=== PATIENT | male | born 1985 | race Caucasian/White ===

== ENCOUNTER 2024-09-29 10:57 | Outpatient (AMB) | payer OTHER, SELFPAY ==
[2024-09-29 11:08] VITALS: BP 136/86; PULSE 78; RESP 18; TEMP 37; O2SAT 99; BMI 41.2
--- NOTE | 2024-09-29 11:08 | MHC.PC.OV ---
Vital Signs 09/29/24 11:08 Height 5 ft 6.5 in Weight 259 lb BMI 41.2 BP 136/86 Blood Pressure Location Lt brachial Position Sitting Respiration 18 Pulse 78 Pulse Source Pulse Oximeter Temp 98.6 F Temp Source Oral Pulse Oximetry (%) 99 Oxygen Delivery Method Room Air Intake Visit Reasons: establish care Intake Note: Patient is a new patient here to establish care. Patient reports that he has not had a primary care physician in 20+ years and sought care at the emergency department or urgent care facility when did. However, patient reports that he did have specialty visits with a urologist and [facility]. Medical records have not been requested and have not been received. Medical Records Auditor Required: No Accompanied by: Self / Same As Patient Allergies No Known Allergies Allergy (Verified 09/29/24 11:33) Medication List - Last Reconciled 09/29/24 by BELL James No Known Home Meds Tobacco use date assessed: 09/29/24 Dental Screening Dental Screen Date: 09/29/24 Did you have a dental visit in the last 12 months?: No Did you have a dental problem in the last 6 months where you did not have access to dental care?: No Was dental information given to patient?: No HPI establish care HPI Details Previous PCP: No PCP Last visit: Last PE: Specialist: urologist at [facility]YN:n/a Past medical history: Pin in left hip as a child, slipped capitus femur, at 12 years, asthma as a child-wheezes with changing of the weather, Medications: Family HX: mother has a PA at 49 y/o survived, sister son has a heart condition (requiring surgery), paternal grand other DM, Problem: The patient is a 39-year-old male presenting to [facility] care for health maintenance and mental health support. He has undergone significant urological intervention, with reconstructive surgery for a urethral stricture accomplished two years ago (at the [facility] by Dr. Joseph), ensuring improved urinary function. His childhood asthma appears resolved without medication, though he expresses concern related to his current obesity and its impact on his health, suggesting a likelihood of exacerbating his respiratory symptoms. 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 Family history includes early-onset heart disease, demonstrated by his mother's myocardial infarction in her late 40s and concerns of diabetes associated with paternal lineage. Additionally, he articulates concerns regarding his mental health, discussing his growing sense of dissatisfaction and lack of fulfillment, which may indicate underlying depression. The patient has not pursued prior mental health treatment but indicates an interest in engaging with mental health services to better address these concerns. States that two years ago he had an endoscopic laser procedure that removed scar tissue from his urethra. The patient was having reoccurring UTIs and difficulty emptying his bladder. All stemming from repeated damages to his pelvic area over the years. Reports that he had to wear a Meyer bag for over a month, as a result, he started taking his health serous and wants to start keeping up with the maintenance of his health. States that he has no desire to take his life but at times, he does not see the purpose of being here (alive). He would like to talk to a therapist to clear his mind and hopefully stopped being so hard on himself. Denies chest pain/sob/heart palpitation/dizziness No abdominal pain/change in bowel habits Denies urinary symptoms [facility] Surgical History History of repair of left hip joint Personal history of surgery to other organs Hx of tooth extraction Family History (Updated 10/03/24 @ 17:25 by BELL James) Mother Heart attack Father No problems noted. 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 1. Little interest or pleasure in doing things: not at all 2. Feeling down, depressed, or hopeless: not at all 3. Trouble falling or staying asleep, or sleeping too much: more than half the days 4. Feeling tired or having little energy: not at all 5. Poor appetite or overeating: not at all 6. Feeling bad about yourself - or that you are a failure or have let yourself or your family down: not at all 7. Trouble concentrating on things, such as reading the newspaper or watching television: not at all 8. Moving or speaking so slowly that other people could have noticed. Or the opposite - being so fidgety or restless that you have been moving around a lot more than usual: not at all 9. Thoughts that you would be better off or of hurting yourself in some way: not at all Total score: 2 Depression Screening Interpretation: Negative Depression Screening Done: Yes 66823 - PHQ-9 Billing: Yes Source: Developed by Drs. Karel Mota, Mary Mcarthur, Brendan Chacon and colleagues, with an educational missael from [employer]. Thrive Questionnaire Date Thrive assessed: 09/29/24 I am a: Patient What is your living situation today?: I have a steady place to live Within the past 12 months, did the food you bought not last and you didn't have the money to get more?: Never true Within the past 12 months, did you worry whether your food would run out before you got money to buy more?: Never true Do you have trouble paying for medicines?: No Do you have trouble getting transportation to medical appointments?: No Do you have trouble paying your heating and electricity bill?: No Do you have trouble taking care of your child, family member or friend?: No Do you have trouble with day-to-day activities such as bathing, preparing meals, shopping, managing finances, etc.?: No Are you currently unemployed and looking for a job?: No Are you interested in more education?: Yes Please select the resources that you would like help with: None Currently or been in a relationship where the following occur: No concerns reported THRIVE Score: 0 AUDIT C Alcohol Use Questionnaire (AUDIT-C) 1. How often do you have a drink containing alcohol?: Never Total Score: 0 Score Reviewed/Action Taken: No PAULETTE-7 AMB Questionnaire PAULETTE-7 Date PAULETTE - 7 assessed: 09/29/24 Feeling nervous, anxious, or on edge: 2 = More than half the days Not being able to stop or control worryin = More than half the days Worrying too much about different things: 2 = More than half the days Trouble relaxin = More than half the days Being so restless that it is hard to sit still: 2 = More than half the days Becoming easily annoyed or irritable: 2 = More than half the days Feeling afraid as if something awful might happen: 2 = More than half the days Total PAULETTE-7 score (0-4 normal; 5-9 mild; 10-14 moderate; 15-21 severe): 14 Source: Developed by Drs. Karel Mota, Mary Mcarthur, Brendan Chacon and colleagues, with an educational missael from [employer]. PAULETTE-7 Assessment Billing PAULETTE-7 Assessment Tool: PAULETTE-7 Assessment 46611 Review of Systems Const Denies headache(s) Eyes Denies loss of vision ENT Denies vertigo, Denies dizziness, Denies headache(s) and Denies sore throat Card Denies chest pain, Denies leg edema and Denies lightheadedness Resp Denies cough, Denies hemoptysis and Denies wheezing GI Denies abdominal pain, Denies melena, Denies constipation, Denies diarrhea and Denies vomiting Denies dysuria, Denies urinary frequency and Denies urinary urgency Musc Denies arthralgias, Denies joint swelling, Denies numbness and Denies tingling Neuro Denies Abnormal speech present, Denies behavioral changes, Denies vertigo, Denies dizziness, Denies headache(s), Denies loss of vision, Denies memory loss, Denies numbness and Denies tingling Psych Reports anxiety, Denies behavioral changes, Reports depression, Denies memory loss and Denies panic attacks Ze/Lymph Denies easy bleeding and Denies easy bruising Aller/Immun Denies wheezing Physical exam (Primary Care) Vital Signs: Last Vital Signs Temp 98.6 F 09/29/24 11:08 Pulse 78 09/29/24 11:08 Resp 18 09/29/24 11:08 BP 136/86 09/29/24 11:08 Pulse Ox 99 09/29/24 11:08 Oxygen Delivery Method Room Air 09/29/24 11:08 BMI result Body Mass Index 41.2 Tobacco/Smoking Status: Tobacco use Status Tobacco use date assessed 09/29/24 09/29/24 11:28 Patient Tobacco Use Status Never used Tobacco 09/29/24 11:28 e-Cigarette/Vaping Use Currently Using 09/29/24 11:28 PHQ-9: PHQ-9 Score PHQ-9: Total score 2 09/29/24 11:39 Depression Screening Interpretation: Negative Thrive Assessment: Date of Thrive Assessment Date Thrive assessed 09/29/24 09/29/24 11:28 Currently or been in a relationship where the following occur: No concerns reported Const General: healthy appearing, no acute distress, alert and awake Nutritional Appearance: well nourished Orientation/consciousness: oriented to person, oriented to place and oriented to time HENMT Ears: TM's normal bilaterally General nose exam: Normal nasal mucous membranes and turbinates present Eyes Conjunctivae: conjunctivae normal Sclerae: sclerae normal Pupils: Equal, round and reactive pupils present Neck Neck: Yes no lymphadenopathy and Yes no JVD Thyroid: Thyroid normal Carotids: no bruits Resp Effort & Inspection: normal respiratory effort and not tachypneic Auscultation: no crackles, no rales, no rhonchi and no wheezes Cardio Rate: regular rate Rhythm: regular rhythm Heart sounds: no murmurs and normal S1 and S2 GI Palpation (GI): Soft to palpation, nontender, no hepatomegaly and no splenomegaly Auscultation: normal bowel sounds Skin General skin exam: no rashes or lesions noted and dry skin Neuro General: oriented to person, oriented to place and oriented to time Cranial nerves: Yes Equal, round and reactive pupils present Speech: No Abnormal speech present Gait exam (Neuro): Normal gait present Motor exam (neuro): no tremor noted Extrem Right upper extremity: full ROM Left upper extremity: full ROM Right lower extremity: full ROM; no edema Left lower extremity: full ROM; no edema Psych Mental Status: mental status grossly normal Speech and movement: Normal speech and movement present Affect: normal affect Attitude: cooperative Thought process: Normal thought process present Coding Level of Care Code New Pt Level 4 (62325) Diagnoses Encounter to establish care with new provider Z76.89 Depression, unspecified depression type F32.A Depression Type: unspecified Additional Codes PAULETTE-7 Assessment Billing - PAULETTE-7 Assessment Tool: PAULETTE-7 Assessment 78025 ([id number]) PHQ-9 - 11354 - PHQ-9 Billing: Yes ([id number]) Time Spent (min) 39 Assessment & Plan Assessment & Plan (1) Encounter to establish care with new provider: Code(s): Z76.89 - Persons encountering health services in other specified circumstances Category: Medical Plan: States that he is looking to get a comprehensive workup. He wants to stay on top of health related issues because he is not getting any younger. Labs ordered and the patient was scheduled to return in 6 weeks for a physical evaluation. (2) Depression: Code(s): F32.A - Depression, unspecified Category: Medical Qualifiers: Depression Type: unspecified Qualified Code(s): F32.A - Depression, unspecified Plan: Urgent psychosocial referral placed Orders: Orders Complete Blood Count Auto Diff 09/29/24 Z00.00 - Encounter for general adult medical examination without abnormal findings Lipid Panel 09/29/2400.00 - Encounter for general adult medical examination without abnormal findings UA CC w/rflx Micro + Cult 09/29/24 Z00. - Encounter for general adult medical examination without abnormal findings Glucose Fasting 09/29/24 Z00.00 - Encounter for general adult medical examination without abnormal findings Comprehensive [place]. Panel Fast 09/29/24 Z00. - Encounter for general adult medical examination without abnormal findings TSH reflex Free T4 09/29/24 Z00. - Encounter for general adult medical examination without abnormal findings Vitamin D 25-OH Total 09/29/24 Z00.00 - Encounter for general adult medical examination without abnormal findings Referrals Psychology Referral F32.A - Depression, unspecified
--- OUTSIDE RECORDS SUMMARY | 2024-09-29 12:21 | XMS_ITS | Clinical Summary ---
Author Organization [facility] ity Address [address] [place] [address] Care Team Providers Care Home Office Claim Specialist Name Role Phone Unavailable Primary Care Provider Unavailabl e Social History Tobacco Use Types Packs/Day Years Used Date Smoking Tobacco: Never Assessed Sex and Gender Information Value Date Recorded Sex Assigned at Not on file Legal Sex Male 1:43 PM EST Gender Identity Not on file Sexual Orientation Not on file Plan of Treatment Health Maintenance Due Date Last Done Comments DTaP,Tdap,and Td Vaccines (1 - Tdap) 2003 Hepatitis B Vaccines (1 of 3 - 19+ 3-dose series) 2003 Cholesterol Screening (Lipid Panel) 11/15/2022 Depression Screening 11/15/2022 HIV Screening 11/15/2022 Hepatitis C Screening 11/15/2022 Social Influencers of Health Screening 11/15/2022 COVID-19 Vaccine (2023-2 5 season) 2024 Influenza Vaccine (Season Ended) 2025 HIB Vaccines Aged Out No longer eligi ble based on patient's age to complete this topic HPV Vaccines Aged Out No longer eligi ble based on patient's age to complete this topic Hepatitis A Vaccines Aged Out No long er eligible based on patient's age to complete this topic IPV Vaccines Aged Out No longer eligi ble based on patient's age to complete this topic MMR Vaccines Aged Out No longer eligi ble based on patient's age to complete this topic Meningococcal ACWY Vaccine Aged Out N o longer eligible based on patient's age to complete this topic Meningococcal B Vaccine Aged Out No l onger eligible based on patient's age to complete this topic Pneumococcal Vaccine: Pediat rics (0 to 5 Years) and At-Risk Patients (6 to 64 Years) Aged Out No longer eligible b ased on patient's age to complete this topic RSV Immunization Patients Un jessica 20 months Aged Out No longer eligible b ased on patient's age to complete this topic Varicella Vaccines Aged Out No longer eligible based on patient's age to complete this topic
== END 2024-09-29 12:10 | disposition home or self-care (01) ==
LOC: HO.HMCH 10:57
DX: Z76.89 Persons encountering health services in other specified circumstances (principal); F32.A Depression, unspecified

== ENCOUNTER → 2024-09-29 10:57 | Outpatient (BNVA) | payer OTHER, SELFPAY | DX: F32.A Depression, unspecified (principal); Z76.89 Persons encountering health services in other specified circumstances | CPT/HCPCS: 96127 ==

== ENCOUNTER 2024-11-03 13:50 | Outpatient (REF) | payer OTHER, SELFPAY ==
[2024-11-03 14:08] LABS: MANUAL DIFF FLAG NO
[2024-11-03 14:19] LABS: Basophils Percent Auto 0.5 % (0-2); Eosinophils Absolute Auto 0.3 X10*3/uL (0.0-0.4); Eosinophils Percent Auto 3.7 % (0-4); Hemoglobin 15.3 g/dl (14.0-18.0); Imm Gran Abs Auto 0.02 X10*3/uL (0.00-0.03); Imm Gran Pct Auto 0.3 % (0.0-0.4); Lymphocytes Absolute Auto 2.6 X10*3/uL (1.2-4.9); Lymphocytes Percent Auto 34.1 % (20-40); Mean Corpuscular Hemoglobin 28.8 pg (27.0-33.0); Mean Corpuscular Volume 84.7 fL (80.0-98.0); Mean Platelet Volume 8.4 fL (9.4-12.4); Monocytes Absolute Auto 0.6 X10*3/uL (0.1-1.2); Monocytes Percent Auto 7.8 % (2-11); Neutrophils Percent Auto 53.6 % (45-73); Platelet Count 300 X10*3/uL (160-400); Red Blood Count 5.31 X10*6/uL (4.60-5.80); White Blood Count 7.5 X10*3/uL (4.8-10.8)
[2024-11-03 14:49] LABS: Alanine Aminotransferase 84 U/L (0-40); Albumin Level 4.6 g/dL (3.5-5.0); Alkaline Phosphatase 62 U/L (39-117); Anion Gap 12 (12-20); Aspartate Amino Transferase 44 U/L (5-37); Bilirubin Total 0.9 mg/dL (0.0-1.0); Blood Urea Nitrogen 12 mg/dL (9-16); Calcium 9.4 mg/dL (8.4-10.2); Carbon Dioxide 24 mmol/L (22-29); Chloride 109 mmol/L (96-108); Cholesterol 126 mg/dL (<200); Estimated Glomerular Filt Rate > 60; Glucose Fasting 89 mg/dL (60-99); HDL Cholesterol 37 mg/dL (>40); LDL Cholesterol Calculated 63 mg/dL (<100); Potassium 3.9 mmol/L (3.3-5.1); Sodium 141 mmol/L (135-145); Total Protein 7.4 g/dL (6.5-8.0); Triglycerides 134 mg/dL (<150)
[2024-11-03 14:59] LABS: TSH reflex Free T4 0.89 uIU/mL (0.32-4.0); Vitamin D 25-OH Total 17.8 ng/mL (>30)
[2024-11-03 15:20] LABS: Appearance Urine Clear; Color Urine Yellow; Glucose Urine UA Negative (Negative); Leukocyte Esterase Urine Negative (Negative); Nitrite Urine Negative (Negative); Urine Blood Negative (Negative); Urine Ketones Negative (Negative); Urine Protein Negative (Neg-Trace)
--- OUTSIDE RECORDS SUMMARY | 2024-11-03 16:33 | XMS_ITS | Clinical Summary ---
Author Organization [facility] ity Address [address] [place] [address] Care Team Providers Care Educational Aide Name Role Phone Unavailable Primary Care Provider [...]
== END 2024-11-03 13:51 | disposition home or self-care (01) ==
LOC: HO.LAB 13:50
DX: Z00.00 Encounter for general adult medical examination without abnormal findings (principal)
CPT/HCPCS: 36415; 80053; 80061; 81003; 82306; 84443; 85025

== ENCOUNTER 2024-11-11 08:30 | Outpatient (AMB) | payer OTHER, SELFPAY ==
[2024-11-11 08:35] VITALS: BP 124/74; PULSE 75; RESP 16; TEMP 36.9; O2SAT 97; BMI 41.4
--- NOTE | 2024-11-11 08:35 | A.OFFPC_ITS ---
Vital Signs 11/11/24 08:35 Height 5 ft 6.5 in Weight 260 lb 6 oz BMI 41.4 BP 124/74 Blood Pressure Location Lt brachial Position Sitting Respiration 16 Pulse 75 Pulse Source Pulse Oximeter Temp 98.5 F Temp Source Oral Pulse Oximetry (%) 97 Oxygen Delivery Method Room Air Intake Visit Reasons: Annual Exam Prover Required: No Accompanied by: Self / Same As Patient Allergies No Known Allergies Allergy (Verified 11/11/24 08:41) Medication List - Last Reconciled 11/11/24 by BELL James No Known Home Meds Tobacco use date assessed: 11/11/24 Dental Screening Dental Screen Date: 11/11/24 Did you have a dental visit in the last 12 months?: No Did you have a dental problem in the last 6 months where you did not have access to dental care?: No Was dental information given to patient?: No HPI Annual Exam HPI Details Patient is present in for annual physical Dentist: 10 years-recommend Eye:2 years ago Snellen: Right: Left: Corrected vision: yes STI screening:n/a Colonoscopy:n/a Pap Smer:n/a PHQ-9: Flu:no vaccines COVID: Tdap:up to date Diet:regular Exercise:no exercise snoring and stop breathing during sleeping per partner white scab areas to back that he is requesting to be checked dermatology Elevated liver enzymes on labs [facility] Surgical History History of repair of left hip joint Personal history of surgery to other organs Hx of tooth extraction Family History (Updated 10/03/24 @ 17:25 by BELL James) Mother Heart attack Father No problems noted. 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 1. Little interest or pleasure in doing things: not at all 2. Feeling down, depressed, or hopeless: not at all 3. Trouble falling or staying asleep, or sleeping too much: more than half the days 4. Feeling tired or having little energy: not at all 5. Poor appetite or overeating: not at all 6. Feeling bad about yourself - or that you are a failure or have let yourself or your family down: not at all 7. Trouble concentrating on things, such as reading the newspaper or watching television: not at all 8. Moving or speaking so slowly that other people could have noticed. Or the opposite - being so fidgety or restless that you have been moving around a lot more than usual: not at all 9. Thoughts that you would be better off or of hurting yourself in some way: not at all Total score: 2 Depression Screening Interpretation: Negative Depression Screening Done: Yes Source: Developed by Drs. Karel Mota, Mary Mcarthur, Brendan Chacon and colleagues, with an educational missael from [employer]. Thrive Questionnaire Date Thrive assessed: 11/11/24 I am a: Patient What is your living situation today?: I have a steady place to live Within the past 12 months, did the food you bought not last and you didn't have the money to get more?: Never true Within the past 12 months, did you worry whether your food would run out before you got money to buy more?: Never true Do you have trouble paying for medicines?: No Do you have trouble getting transportation to medical appointments?: No Do you have trouble paying your heating and electricity bill?: No Do you have trouble taking care of your child, family member or friend?: No Do you have trouble with day-to-day activities such as bathing, preparing meals, shopping, managing finances, etc.?: No Are you currently unemployed and looking for a job?: No Are you interested in more education?: Yes Please select the resources that you would like help with: None Currently or been in a relationship where the following occur: No concerns reported THRIVE Score: 0 AUDIT C Alcohol Use Questionnaire (AUDIT-C) 1. How often do you have a drink containing alcohol?: Never 3. How often do you have six or more drinks on one occasion?: Never Total Score: 0 Score Reviewed/Action Taken: No PAULETTE-7 AMB Questionnaire PAULETTE-7 Date PAULETTE - 7 assessed: 11/11/24 Feeling nervous, anxious, or on edge: 2 = More than half the days Not being able to stop or control worryin = More than half the days Worrying too much about different things: 2 = More than half the days Trouble relaxin = More than half the days Being so restless that it is hard to sit still: 2 = More than half the days Becoming easily annoyed or irritable: 2 = More than half the days Feeling afraid as if something awful might happen: 2 = More than half the days Total PAULETTE-7 score (0-4 normal; 5-9 mild; 10-14 moderate; 15-21 severe): 14 Source: Developed by Drs. Karel Mota, Mary Mcarthur, Brendan Chacon and colleagues, with an educational missael from [employer]. Review of Systems Const Reports daytime sleepiness, Denies headache(s), Reports snoring and Reports other (Reports brain fog even after sleeping all night) Eyes Denies loss of vision ENT Denies vertigo, Denies dizziness, Denies headache(s) and Denies sore throat Card Denies chest pain, Denies leg edema, Denies lightheadedness and Reports dyspnea on exertion (With over exertion) Resp Denies cough, Denies hemoptysis, Reports dyspnea on exertion (With over exertion), Reports snoring and Denies wheezing GI Denies abdominal pain, Denies melena, Denies constipation, Denies diarrhea and Denies vomiting Denies dysuria, Denies urinary frequency and Denies urinary urgency Musc Denies arthralgias, Denies joint swelling, Denies numbness, Reports stiffness (reports stick neck after sleeping-attributed to needing new mattress) and Denies tingling Skin/Breast Reports lesions (ongoing white spots to back) Neuro Denies Abnormal speech present, Denies behavioral changes, Denies vertigo, Denies dizziness, Denies headache(s), Denies loss of vision, Denies memory loss, Denies numbness and Denies tingling Psych Reports anxiety, Denies behavioral changes, Reports depression, Denies memory loss and Denies panic attacks Ze/Lymph Denies easy bleeding and Denies easy bruising Aller/Immun Denies wheezing Physical exam (Primary Care) Vital Signs: Oxygen Delivery Method Room Air 11/11/24 08:35 Tobacco/Smoking Status: Tobacco use Status Tobacco use date assessed 09/29/24 09/29/24 11:28 Patient Tobacco Use Status Never used Tobacco 09/29/24 11:28 e-Cigarette/Vaping Use Currently Using 09/29/24 11:28 Depression Screening Interpretation: Negative Thrive Assessment: Date of Thrive Assessment Date Thrive assessed 09/29/24 09/29/24 11:28 Currently or been in a relationship where the following occur: No concerns reported Const General: healthy appearing, no acute distress, alert and awake Nutritional Appearance: well nourished Orientation/consciousness: oriented to person, oriented to place and oriented to time HENMT Ears: TM's normal bilaterally General nose exam: Normal nasal mucous membranes and turbinates present Eyes Conjunctivae: conjunctivae normal Sclerae: sclerae normal Pupils: Equal, round and reactive pupils present Neck Neck: Yes no lymphadenopathy and Yes no JVD Thyroid: Thyroid normal Carotids: no bruits Resp Effort & Inspection: normal respiratory effort and not tachypneic Auscultation: no crackles, no rales, no rhonchi and no wheezes Cardio Rate: regular rate Rhythm: regular rhythm Heart sounds: no murmurs and normal S1 and S2 GI Inspection: Yes obesity Palpation (GI): Soft to palpation, nontender, no hepatomegaly and no splenomegaly Auscultation: normal bowel sounds General: Yes no CVA tenderness Back/Spine/Pelvis Back: no CVA tenderness Skin General skin exam: dry skin and other (few scattered white spots to upper back) Neuro General: oriented to person, oriented to place, oriented to time and CN's II-XI intact bilaterally Cranial nerves: Yes Equal, round and reactive pupils present Speech: No Abnormal speech present Gait exam (Neuro): Normal gait present Motor exam (neuro): no tremor noted Deep tendon reflexes (DTR's): Right triceps reflex intensity grade: 2+, Left triceps reflex intensity grade: 2+, Rt Biceps (C5, C6): 2+, Left biceps reflex intensity grade: 2+, Right brachioradialis reflex intensity grade: 2+, Left brachioradialis reflex intensity grade: 2+, Right patellar reflex intensity grade: 2+ and Left patellar reflex intensity grade: 2+ Extrem Right upper extremity: full ROM Left upper extremity: full ROM Right lower extremity: full ROM; no edema Left lower extremity: full ROM; no edema Psych Mental Status: mental status grossly normal Speech and movement: Normal speech and movement present Affect: normal affect Attitude: cooperative Thought process: Normal thought process present Results Reviewed Results Reviewed: Laboratory Tests 11/03/24 11/03/24 14:07 14:08 WBC 7.5 RBC 5.31 Hgb 15.3 Hct 45.0 MCV 84.7 MCH 28.8 MCHC 34.0 RDW 12.0 Plt Count 300 Sodium 141 Potassium 3.9 Chloride 109 H Carbon Dioxide 24 Anion Gap 12 BUN 12 Creatinine 1.03 Estimated GFR > 60 Fasting Glucose 89 Calcium 9.4 Total Bilirubin 0.9 AST 44 H ALT 84 H Alkaline Phosphatase 62 Total Protein 7.4 Albumin 4.6 Triglycerides 134 Cholesterol 126 LDL Cholesterol, Calc 63 HDL Cholesterol 37 L 25-OH Vitamin D Total 17.8 L TSH 0.89 Urine Color Yellow Urine Appearance Clear Urine pH 6.0 Ur Specific [place] 1.010 Urine Protein Negative Urine Glucose (UA) Negative Urine Ketones Negative Urine Blood Negative Urine Nitrite Negative Ur Leukocyte Esterase Negative Coding Level of Care Code Est Pt Prev Care 40-64y(18028) Diagnoses Annual physical exam Z00.00 Depression, unspecified depression type F32.A Depression Type: unspecified Elevated liver enzymes R74.8 Vitamin D deficiency E55.9 Snoring R06.83 Has stopped breathing R09.2 Daytime sleepiness R40.0 Hypopigmentation L81.9 Time Spent (min) 41 Assessment & Plan Assessment & Plan (1) Annual physical exam: Code(s): Z00.00 - Encounter for general adult medical examination without abnormal findings Category: Medical Plan: Reviewed preventative guidelines and recent labs with the patient (2) Depression: Code(s): F32.A - Depression, unspecified Category: Medical Qualifiers: Depression Type: unspecified Qualified Code(s): F32.A - Depression, unspecified Plan: He was referred his previous visit. Reports that they have been reaching out to him but he has not responded (3) Elevated liver enzymes: Code(s): R74.8 - Abnormal levels of other serum enzymes Category: Medical Plan: ast 44, alt 85-discussed with patient about his elevated liver enzymes. Limit alcohol /Tylenol/use. Low fat diet. Liver panel ordered. He does not have any stomach pain. Consider an abdominal ultrasound with elastography if enzymes continue to be elevated. (4) Vitamin D deficiency: Code(s): E55.9 - Vitamin D deficiency, unspecified Category: Medical Plan: vit d 17.8 Start vitamin D3 2000 IU OTC daily (5) Snoring: Code(s): R06.83 - Snoring Category: Medical Plan: Sleep study ordered (6) Has stopped breathing: Code(s): R09.2 - Respiratory arrest Category: Medical Plan: Sleep study ordered (7) Daytime sleepiness: Code(s): R40.0 - Somnolence Category: Medical Plan: Same as above (8) Hypopigmentation: Code(s): L81.9 - Disorder of pigmentation, unspecified Category: Medical Plan: The patient has a white spots on his back that they reports that his father has a same spots. Would like to be evaluated by a fmd teacher. Referral placed Orders: Orders Complete Blood Count Auto Diff 3 Months E55.9 - Vitamin D deficiency, unspecified, F32.A - Depression, unspecified, R74.8 - Abnormal levels of other serum enzymes Comprehensive [place]. Panel Fast 3 Months E55.9 - Vitamin D deficiency, unspecified, F32.A - Depression, unspecified, R74.8 - Abnormal levels of other serum enzymes Lipid Panel 3 Months E55.9 - Vitamin D deficiency, unspecified, F32.A - De pression, unspecified, R74.8 - Abnormal levels of other serum enzymes UA CC w/rflx Micro + Cult 3 Months E55.9 - Vitamin D deficiency, unspecified, F32.A - Depression, unspecified, R74.8 - Abnormal levels of other serum enzymes Vitamin D 25-OH Total 3 Months E55.9 - Vitamin D deficiency, unspecified, F32.A - Depression, unspecified, R74.8 - Abnormal levels of other serum enzymes Liver Panel 3 Months E55.9 - Vitamin D deficiency, unspecified, F32.A - Depression, unspecified, R74.8 - Abnormal levels of other serum enzymes Prothrombin Time INR 3 Months E55.9 - Vitamin D deficiency, unspecified, F32.A - Depression, unspecified, R74.8 - Abnormal levels of other serum enzymes RT home sleep study Today R06.83 - Snoring, R09.2 - Respiratory arrest TSH reflex Free T4 3 Months E55.9 - Vitamin D deficiency, unspecified, F32.A - Depression, unspecified, R74.8 - Abnormal levels of other serum enzymes Hepatitis A,B,C Profile 3 Months E55.9 - Vitamin D deficiency, unspecified, F32.A - Depression, unspecified, R74.8 - Abnormal levels of other serum enzymes Ferritin 3 Months E55.9 - Vitamin D deficiency, unspecified, F32.A - Depression, unspecified, R74.8 - Abnormal levels of other serum enzymes Referrals Dermatology Referral L81.9 - Disorder of pigmentation, unspecified
--- OUTSIDE RECORDS SUMMARY | 2024-11-11 08:37 | XMS_ITS | Clinical Summary ---
Author Organization [facility] ity Address [address] [place] [address] Care Team Providers Care Fly Raiser Lockstitch Name Role Phone Unavailable Primary Care Provider [...]
== END 2024-11-11 09:23 | disposition home or self-care (01) ==
LOC: HO.HMCH 08:31
DX: Z00.00 Encounter for general adult medical examination without abnormal findings (principal); R09.2 Respiratory arrest; F32.A Depression, unspecified; R74.8 Abnormal levels of other serum enzymes; E55.9 Vitamin D deficiency, unspecified; R06.83 Snoring; R40.0 Somnolence; L81.9 Disorder of pigmentation, unspecified

== ENCOUNTER 2025-02-15 09:47 | Outpatient (REF) | payer OTHER, SELFPAY ==
[2025-02-15 10:10] LABS: MANUAL DIFF FLAG NO
[2025-02-15 10:37] LABS: Hematocrit 46.2 % (42.0-52.0); Hemoglobin 15.8 g/dl (14.0-18.0); INTERNATIONAL NORM RATIO 1.0 (0.9-1.1); Imm Gran Abs Auto 0.04 X10*3/uL (0.00-0.03); Imm Gran Pct Auto 0.5 % (0.0-0.4); Lymphocytes Absolute Auto 2.4 X10*3/uL (1.2-4.9); Mean Corpuscular HGB Conc 34.2 g/dl (31.0-36.0); Mean Corpuscular Hemoglobin 29.2 pg (27.0-33.0); Mean Corpuscular Volume 85.4 fL (80.0-98.0); NRBC Abs Auto 0.000 X10*3/uL (0.0-0.012); NRBC Pct Auto 0.0 /100WBC (0.0-0.2); Platelet Count 297 X10*3/uL (160-400); Prothrombin Time 11.5 SEC (10.9-12.4); Red Blood Count 5.41 X10*6/uL (4.60-5.80); White Blood Count 8.5 X10*3/uL (4.8-10.8)
--- OUTSIDE RECORDS SUMMARY | 2025-02-15 11:16 | XMS_ITS | Clinical Summary ---
Author Organization [facility] ity Address [address] [place] [address] Care Team Providers Care Beader Name Role Phone Unavailable Primary Care Provider [...] of 3 - 19+ 3-dose series) 2003 HPV Vaccines (1 - 3-dose SCD M series) 2011 Cholesterol Screening (Lipid Panel) 11/15/2022 HIV Screening 11/15/2022 Hepatitis C Screening 11/15/2022 Social Influencers of Health Screening 11/15/2022 Depression Screening 05/12/2024 COVID-19 Vaccine (1 - 2023-2 5 season) 2025 Influenza Vaccine (#1) 2025 RSV Immunization Adult Patie nts (1 - 1-dose 75+ series) 2059 HIB Vaccines Aged Out No longer eligi [...] 5 Years) and At-Risk Patients (6 to 49 Years) Aged Out No longer eligible b ased on patient's age to complete this topic RSV Immunization Patients Un jessica 20 months Aged Out No longer eligible b ased on patient's age to complete this topic Varicella Vaccines Aged Out No longer eligible based on patient's age to complete this topic
--- OUTSIDE RECORDS SUMMARY | 2025-02-15 11:16 | XMS_ITS | Encounter Summary ---
Author Organization [facility] Address [address] [place] [address] Phone Care Team Providers Care Palliative Senior Np Name Role Phone Du Puckett INHALATION THERAPIST Primary Care Provider Encounter Details Date Type Department Care Team (Late st Contact Info) Description 12/09/2024 Procedure [facility], [facility] [address] [place] [address] Social History Tobacco Use Types Packs/Day Years Used Date Smoking Tobacco: Never Smokeless Tobacco: Never Alcohol Use Standard Drinks/Week Comments Never 0 (1 standard drink = 0.6 oz pur e alcohol) Education Answer Date Recorded Are you interested in more education? Not on mele e 09/06/2022 Are you concerned about learning? Not on file 09/06/2022 No 09/06/2022 No 09/06/2022 Digital Access Answer Date Recorded No 10/04/2022 No 10/04/2022 Reliable internet access at home? Not on file 10/04/2022 Device with a working camera? Not on file Intimate Partner Violence Answer Date R ecorded Are you denied basic needs s uch as food, clothing, or medical care? No 12/01/2024 In the past 12 months have y ou been in a relationship with a person who hurts, threatens, or tries to control you? No 12/01/2024 Are you denied basic needs s uch as food, clothing, or medical care? No 12/01/2024 In the past 12 months have y ou been in a relationship with a person who hurts, threatens, or tries to control you? No 12/01/2024 Sex and Gender Information Value Date Recorded Sex Assigned at Male 02/26/2019 1:50 PM EDT Legal Sex Male 9:15 PM EDT Gender Identity Male 02/26/2019 1:50 PM EDT Sexual Orientation Straight 02/26/2019 1: 50 PM EDT documented as of this encounter Plan of Treatment Not on file documented as of this encounter Visit Diagnoses Not on filedocumented in this encounter Care Teams Palliative Senior Np Relationship Specialty Start Date End Date Du Puckett NP [address] [place] [address] Dr [address] [place] [address] PCP - General Nurse Practitioner 12/02/24 documented as of this encounter Additional Source Comments The information contained in this document represents components of the legal health record. It is not the complete legal health record.[facility]
--- OUTSIDE RECORDS SUMMARY | 2025-02-15 11:16 | XMS_ITS | Clinical Summary ---
Author Organization [facility] Address [address] [place] [phone] Phone Care Team Providers Care Form Raiser Name Role Phone ItaloDu DIORAMIST Primary Care Provider Allergies No known active allergies Medications No known medications Active Problems No known active problems Encounters Date Type Department Care Team Description 01/21/2025 3:30 PM EDT Office Visit [facility] [address] [place] [address] [place] [id number] Karel Zavala MD Knee mass, right (Primary Dx); Prepatellar bursitis of right knee 12/31/2024 8:37 PM EDT - 12/31/2024 11:59 PM EDT Hospital Encounter [address] [address] Karel Zavala MD Discharge Disposition: Home or Self Care 12/09/2024 1:30 PM EDT Office Visit [facility] [address] [place] [address] [place] [id number] Karel Zavala MD Knee mass, right (Primary Dx) 12/09/2024 Procedure Pass [address] [address] 12/01/2024 9:41 PM EDT - 12/02/2024 3:35 AM EDT Emergency [facility] [address] [place] [id number] Ya Byers MD Discharge Disposition: Home or Self Care from Last 3 Months Social History Tobacco Use Types Packs/Day Years [...] Orientation Straight 02/26/2019 1: 50 PM EDT Last Filed Vital Signs Vital Sign Reading Time Taken Comments Blood Pressure 124/79 12/02/2024 3:05 AM EDT Pulse 69 12/02/2024 3:05 AM EDT Temperature 36 C (96.8 F) 12/02/2024 3:05 AM EDT Respiratory Rate 18 12/02/2024 3:05 AM EDT Oxygen Saturation 96% 12/02/2024 3:05 AM EDT Inhaled Oxygen Concentration - - Weight 117.9 kg (260 lb) 12/30/2024 10:30 AM EDT Height 167.6 cm (5' 6 ) 12/30/2024 10:30 AM EDT Body Mass Index 41.97 12/30/2024 10:30 AM EDT Plan of Treatment Health Maintenance Due Date Last Done Comments Adult Td,Tdap Booster 1984 LIPID PANEL 1984 DEPRESSION SCREENING 1996 HEPATITIS C SCREENING 2002 HIV ONE-TIME SCREENING (18-6 5 YEARS) 2002 INFLUENZA VACCINE (#1) 2024 COVID-19 VACCINE (2023-2 5 season) 2025 SCREENING FOR DIABETES 12/11/2025 12/11/2022 SMOKING STATUS SCREENING (On ce After 26 Yrs) Completed 01/21/2025 HEPATITIS A VACCINES Aged Out No long er eligible based on patient's age to complete this topic HIB VACCINES Aged Out No longer eligi ble based on patient's age to complete this topic MENINGOCOCCAL VACCINES (ACWY) Aged Out No longer eligible based on patient's age to complete this topic MENINGOCOCCAL VACCINES (B) Aged Out N o longer eligible based on patient's age to complete this topic PNEUMOCOCCAL VACCINES (0-49 years) Aged Out No longer eligible based on patient's age to complete this topic Medical Devices Not on file Procedures Procedure Name Priority Date/Time Associated Diagnosis Comments MRI KNEE WITHOUT CONTRAST (RIGHT) Routine 12/31/2024 10:45 PM EDT Knee mass, right XR KNEE 4 OR MORE VIEWS (RIGHT) Routine 12/01/2024 11:39 PM EDT from Last 3 Months Results * MRI KNEE WITHOUT CONTRAST (RIGHT) (12/31/2024 10:45 PM EDT) Anatomical Region Laterality Modality Knee Right Magnetic Resonan ce 01/04/2025 2:21 PM EDT Impressions 01/04/2025 2:33 PM EDT 1. There is a 4.8 cm x 1.5 cm x 4.3 cm fluid collection within the prepatellar bursa just medial of midline. This is favored to represent prepatellar bursitis. I can not assess for any enhancing soft tissue component as patient declined administration of IV contrast. Other etiologies such as seroma or hematoma or infected collection are difficult to exclude. Continued surgical consultation recommended. 2. No convincing evidence for articular surfacing meniscal tear. 3. Trace joint fluid. Narrative 01/04/2025 2:33 PM EDT MRI KNEE WITHOUT CONTRAST (RIGHT) Referring clinician's provided indication for this examination in [facility]: * Meniscal tear, untreated, new symptoms; * Soft tissue mass, knee, US/xray nondiagnostic; Large anterior knee mass TECHNIQUE: Multi-sequence, multi-planar MRI of the knee without intravenous contrast. Patient declined administration of intravenous contrast. COMPARISON: Plain films dated 12/01/2024 FINDINGS: Medial Compartment: No meniscal tear. No cartilage defect or subchondral edema. Lateral Compartment: No meniscal tear. No cartilage defect or subchondral edema. Patellofemoral Compartment: No cartilage defect or subchondral edema. Tendons: Normal. Quadriceps, patellar, and popliteus tendons are intact. Ligaments: Cruciate ligaments are intact. Collateral ligaments are intact. Bones: No fracture, osteonecrosis, or focal lesion. Joint: Trace joint fluid. No significant effusion. Within the prepatellar bursa just medial of midline there is an ovoid collection containing a thin internal septation. This demonstrates homogeneous increased T2 signal and decreased T1 signal and measures 4.8 cm x 1.5 cm x 4.3 cm. There is some adjacent edema within the surrounding subcutaneous tissues. I am unable to assess for any enhancing soft tissue component as patient declined administration of IV contrast. Procedure Note Mars Chapa MD - 01/04/2025 MRI KNEE WITHOUT CONTRAST (RIGHT) Referring clinician's provided indication for this examination in [facility]: *Meniscal tear, untreated, new symptoms; * Soft tissue mass, knee, US/xraynondiagnostic; Large anterior knee mass TECHNIQUE: Multi-sequence, multi-planar MRI of the knee withoutintravenous contrast. Patient declined administration of intravenouscontrast. COMPARISON: Plain films dated 12/01/2024 FINDINGS: Medial Compartment: No meniscal tear. No cartilage defect or subchondraledema. Lateral Compartment: No meniscal tear. No cartilage defect or subchondraledema. Patellofemoral Compartment: No cartilage defect or subchondral edema. Tendons: Normal. Quadriceps, patellar, and popliteus tendons are intact. Ligaments: Cruciate ligaments are intact. Collateral ligaments areintact. Bones: No fracture, osteonecrosis, or focal lesion. Joint: Trace joint fluid. No significant effusion. Within the prepatellar bursa just medial of midline there is an ovoidcollection containing a thin internal septation. This demonstrateshomogeneous increased T2 signal and decreased T1 signal and measures 4.8cm x 1.5 cm x 4.3 cm. There is some adjacent edema within the surroundingsubcutaneous tissues. I am unable to assess for any enhancing soft tissuecomponent as patient declined administration of IV contrast. IMPRESSION: 1. There is a 4.8 cm x 1.5 cm x 4.3 cm fluid collection within theprepatellar bursa just medial of midline. This is favored to representprepatellar bursitis. I can not assess for any enhancing soft tissuecomponent as patient declined administration of IV contrast. Otheretiologies such as seroma or hematoma or infected collection are difficultto exclude. Continued surgical consultation recommended. 2. No convincing evidence for articular surfacing meniscal tear. 3. Trace joint fluid. Karel Zavala MD IMG MR EXTREMITY Final Result * XR KNEE 4 OR MORE VIEWS (RIGHT) (12/01/2024 11:39 PM EDT) Anatomical Region Laterality Modality Knee Right Computed Radiogr aphy 12/02/2024 2:44 AM EDT Impressions 12/02/2024 2:46 AM EDT No acute osseous abnormality. Narrative 12/02/2024 2:46 AM EDT XR KNEE 4 OR MORE VIEWS (RIGHT) Referring clinician's provided indication for this examination in Epic: Pain; mass above the patella COMPARISON: None. FINDINGS: No acute fracture or dislocation. Preserved joint space. Prepatellar soft tissue swelling. Procedure Note Dave Ruiz MD - 12/02/2024 XR KNEE 4 OR MORE VIEWS (RIGHT) Referring clinician's provided indication for this examination in Epic:Pain; mass above the patella COMPARISON: None. FINDINGS: No acute fracture or dislocation. Preserved joint space. Prepatellar softtissue swelling. IMPRESSION: No acute osseous abnormality. [facility] IMG XR LOWER EXTREMITY Fi nal Result from Last 3 Months Insurance [address] [place] [id number] [employer] [address] [place] [id number] [employer] COMMERCIAL EX [place] [address] [place] [id number] GENERIC COMMERCIAL GENERIC COMMERCIAL GENERIC COMMERCIAL GENERIC COMMERCIAL Care Teams Form Raiser Relationship Specialty Start Date End Date Du Puckett NP [address] [place] [address] Dr [address] [place] [address] PCP - General Nurse Practitioner 12/02/24 Additional Source Comments The information contained in this document represents components of the legal health record. It is not the complete legal health record.[facility]
[2025-02-15 11:23] LABS: Alanine Aminotransferase 75 U/L (0-40); Albumin Level 4.8 g/dL (3.5-5.0); Alkaline Phosphatase 62 U/L (39-117); Anion Gap 14 (12-20); Aspartate Amino Transferase 47 U/L (5-37); Blood Urea Nitrogen 11 mg/dL (9-16); Calcium 9.3 mg/dL (8.4-10.2); Carbon Dioxide 25 mmol/L (22-29); Chloride 108 mmol/L (96-108); Cholesterol 125 mg/dL (<200); Estimated Glomerular Filt Rate > 60; HDL Cholesterol 36 mg/dL (>40); Potassium 3.7 mmol/L (3.3-5.1); Sodium 143 mmol/L (135-145); Total Protein 7.6 g/dL (6.5-8.0); Triglycerides 138 mg/dL (<150)
[2025-02-15 11:35] LABS: HBS Num1 725.24 mIU/mL (0-7.99); HBc Num1 0.05 S/CO (0.00-0.79); HBsAGNum1 0.34 S/CO (0.00-0.99); Hepatitis A Antibody IgM 0.21 Index (0-0.79); Hepatitis B Surface Antigen Negative (Negative); ~HepC Num1 0.06 S/CO (0.00-0.79); ~Hepatitis A Antibody IgM Nonreactive (Nonreactive); ~Hepatitis B Surface Antibody REACTIVE (Nonreactive); ~Hepatitis C Antibody Nonreactive (Nonreactive)
[2025-02-15 11:42] LABS: Ferritin 276 ng/mL (20-250)
== END 2025-02-15 09:48 | disposition home or self-care (01) ==
LOC: HO.LAB 09:47
DX: Z51.81 Encounter for therapeutic drug level monitoring (principal); F32.A Depression, unspecified; E55.9 Vitamin D deficiency, unspecified; R74.8 Abnormal levels of other serum enzymes
CPT/HCPCS: 36415; 80053; 80061; 80076; 82248; 82306; 82728; 84443; 85025; 85610; 86704; 86706; 86709; 86803; 87340

== ENCOUNTER 2025-02-16 09:59 | Outpatient (REF) | payer OTHER, SELFPAY ==
[2025-02-16 11:01] LABS: Appearance Urine Clear; Glucose Urine UA Negative (Negative); PH 6.0 (5.0-9.0); Specific Gravity - Urine 1.015 (1.005-1.025)
== END 2025-02-16 10:00 | disposition home or self-care (01) ==
LOC: HO.LNP 09:59
DX: F32.A Depression, unspecified (principal); E55.9 Vitamin D deficiency, unspecified; R74.8 Abnormal levels of other serum enzymes
CPT/HCPCS: 81003

== ENCOUNTER 2025-02-22 08:32 | Outpatient (AMB) | payer OTHER, SELFPAY ==
[2025-02-22 08:35] VITALS: BP 136/88; PULSE 96; TEMP 36.1; O2SAT 96; BMI 42.3
--- NOTE | 2025-02-22 08:35 | A.OFFPC_ITS ---
Vital Signs 02/22/25 08:35 Height 5 ft 6.5 in Weight 266 lb 6 oz BMI 42.3 BP 136/88 Blood Pressure Location Lt brachial Position Sitting Pulse 96 Pulse Source Pulse Oximeter Temp 97.0 F Temp Source Temporal Artery Scan Pulse Oximetry (%) 96 Oxygen Delivery Method Room Air Intake Visit Reasons: elevated liver enzymes/vitamin/morbid obesity Allergies No Known Allergies Allergy (Verified 02/22/25 08:40) Medication List - Last Reconciled 02/22/25 by BELL James cholecalciferol (vitamin D3) 25 mcg PO DAILY Tobacco use date assessed: 02/22/25 Dental Screening Dental Screen Date: 02/22/25 Did you have a dental visit in the last 12 months?: No Did you have a dental problem in the last 6 months where you did not have access to dental care?: No Was dental information given to patient?: No HPI elevated liver enzymes/vitamin/morbid obesity 2 HPI Details The patient is a 39-year-old male presenting with elevated liver enzymes and concerns about possible nonalcoholic fatty liver disease. The patient reported a history of elevated liver enzymes, which were identified during routine blood work. The elevated ferritin levels were noted, but not high enough to suggest hemochromatosis. The patient consumes a diet high in protein and occasionally uses cast iron cookware, which may contribute to iron levels. The patient also reported a knee injury sustained from a fall at work, resulting in swelling and a suspected synovial fluid leakage. The injury was evaluated with imaging, and no invasive procedures were deemed necessary as the swelling was reducing. The patient expressed concerns about nonalcoholic fatty liver disease due to obesity and dietary habits. The patient does not consume alcohol, which supports the suspicion of nonalcoholic fatty liver disease. The patient is considering dietary changes and increased physical activity to address weight and liver health. [facility] Surgical History History of repair of left hip joint Personal history of surgery to other organs Hx of tooth extraction Family History Mother Heart attack Father No problems noted. 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 1. Little interest or pleasure in doing things: not at all 2. Feeling down, depressed, or hopeless: not at all 3. Trouble falling or staying asleep, or sleeping too much: more than half the days 4. Feeling tired or having little energy: not at all 5. Poor appetite or overeating: not at all 6. Feeling bad about yourself - or that you are a failure or have let yourself or your family down: not at all 7. Trouble concentrating on things, such as reading the newspaper or watching television: not at all 8. Moving or speaking so slowly that other people could have noticed. Or the opposite - being so fidgety or restless that you have been moving around a lot more than usual: not at all 9. Thoughts that you would be better off or of hurting yourself in some way: not at all Total score: 2 Depression Screening Interpretation: Negative Depression Screening Done: Yes Source: Developed by Drs. Karel Mota, Mary Mcarthur, Brendan Chacon and colleagues, with an educational missael from [employer]. Thrive Questionnaire Date Thrive assessed: 09/29/24 I am a: Patient What is your living situation today?: I have a steady place to live Within the past 12 months, did the food you bought not last and you didn't have the money to get more?: Never true Within the past 12 months, did you worry whether your food would run out before you got money to buy more?: Never true Do you have trouble paying for medicines?: No Do you have trouble getting transportation to medical appointments?: No Do you have trouble paying your heating and electricity bill?: No Do you have trouble taking care of your child, family member or friend?: No Do you have trouble with day-to-day activities such as bathing, preparing meals, shopping, managing finances, etc.?: No Are you currently unemployed and looking for a job?: No Are you interested in more education?: Yes Please select the resources that you would like help with: None Currently or been in a relationship where the following occur: No concerns reported THRIVE Score: 0 AUDIT C Alcohol Use Questionnaire (AUDIT-C) 1. How often do you have a drink containing alcohol?: Never 3. How often do you have six or more drinks on one occasion?: Never Total Score: 0 PAULETTE-7 AMB Questionnaire PAULETTE-7 Date PAULETTE - 7 assessed: 11/11/24 Feeling nervous, anxious, or on edge: 2 = More than half the days Not being able to stop or control worryin = More than half the days Worrying too much about different things: 2 = More than half the days Trouble relaxin = More than half the days Being so restless that it is hard to sit still: 2 = More than half the days Becoming easily annoyed or irritable: 2 = More than half the days Feeling afraid as if something awful might happen: 2 = More than half the days Total PAULETTE-7 score (0-4 normal; 5-9 mild; 10-14 moderate; 15-21 severe): 14 Source: Developed by Drs. Karel Mota, Mary Mcarthur, Brendan Chacon and colleagues, with an educational missael from [employer]. Review of Systems Const Denies body aches, Denies chills, Reports difficulty sleeping, Reports fatigue, Denies fever(s), Denies headache(s), Reports lethargy, Denies poor appetite, Reports snoring and Reports stops breathing during sleep Eyes Denies loss of vision ENT Denies dysphagia, Denies dizziness, Denies headache(s) and Denies odynophagia Card Denies chest pain, Denies syncope, Denies edema, Denies irregular heart rhythm, Denies lightheadedness and Denies dyspnea Resp Denies cough, Denies dyspnea and Reports snoring GI Denies abdominal pain, Denies constipation, Denies dysphagia, Denies diarrhea, Denies nausea, Denies odynophagia and Denies vomiting Reports no additional complaints Musc Reports joint swelling (right knee) Skin/Breast Reports system reviewed and no additional complaints, except as documented Neuro Denies Abnormal speech present, Denies dizziness, Denies syncope, Denies headache(s) and Denies loss of vision Psych Reports depression Endo Reports fatigue Physical exam (Primary Care) Vital Signs: Last Vital Signs Temp 97.0 F 02/22/25 08:35 Pulse 96 02/22/25 08:35 BP 136/88 02/22/25 08:35 Pulse Ox 96 02/22/25 08:35 Oxygen Delivery Method Room Air 02/22/25 08:35 BMI result Body Mass Index 42.3 Tobacco/Smoking Status: Tobacco use Status Tobacco use date assessed 02/22/25 02/22/25 08:39 Patient Tobacco Use Status Never used Tobacco 02/22/25 08:39 e-Cigarette/Vaping Use Currently Using 02/22/25 08:39 PHQ-9: PHQ-9 Score PHQ-9: Total score 2 02/22/25 08:39 Depression Screening Interpretation: Negative Thrive Assessment: Date of Thrive Assessment Date Thrive assessed 09/29/24 02/22/25 08:39 Currently or been in a relationship where the following occur: No concerns reported Const General: healthy appearing, no acute distress, alert and awake Nutritional Appearance: well nourished Orientation/consciousness: oriented to person, oriented to place and oriented to time HENMT Ears: hearing grossly normal bilaterally General nose exam: Normal external nose present Eyes Conjunctivae: conjunctivae normal Sclerae: sclerae normal Pupils: Equal, round and reactive pupils present Neck Neck: Yes no lymphadenopathy and Yes no JVD Thyroid: Thyroid normal Carotids: no bruits Resp Effort & Inspection: normal respiratory effort and not tachypneic Auscultation: no crackles, no rales, no rhonchi and no wheezes Cardio Rate: regular rate Rhythm: regular rhythm Heart sounds: S1 normal heart sound present, S2 normal heart sound present, no murmurs and normal S1 and S2 GI Palpation (GI): Soft to palpation, nontender, no hepatomegaly and no s plenomegaly Auscultation: normal bowel sounds General: Yes no CVA tenderness Back/Spine/Pelvis Back: no CVA tenderness Skin General skin exam: no rashes or lesions noted and dry skin Neuro General: oriented to person, oriented to place and oriented to time Cranial nerves: Yes Equal, round and reactive pupils present Speech: No Abnormal speech present Gait exam (Neuro): Normal gait present Motor exam (neuro): no tremor noted Extrem Right upper extremity: full ROM Left upper extremity: full ROM Right lower extremity: full ROM and knee Details: swelling Location: of the pre-patellar area; no tenderness Left lower extremity: full ROM; no edema Psych Mental Status: mental status grossly normal Speech and movement: Normal speech and movement present Affect: normal affect Attitude: cooperative Thought process: Normal thought process present Results Reviewed Results Reviewed: Laboratory Tests 02/15/25 02/16/25 10:09 08:30 WBC 8.5 RBC 5.41 Hgb 15.8 Hct 46.2 MCV 85.4 MCH 29.2 MCHC 34.2 RDW 11.9 Plt Count 297 Sodium 143 Potassium 3.7 Chloride 108 Carbon Dioxide 25 Anion Gap 14 BUN 11 Creatinine 0.97 Estimated GFR > 60 Fasting Glucose 96 Calcium 9.3 Ferritin 276 H Total Bilirubin 0.9 Direct Bilirubin 0.3 AST 47 H ALT 75 H Alkaline Phosphatase 62 Total Protein 7.6 Albumin 4.8 Triglycerides 138 Cholesterol 125 LDL Cholesterol, Calc 62 HDL Cholesterol 36 L 25-OH Vitamin D Total 40.9 TSH 1.66 Urine Color Yellow Urine Appearance Clear Urine pH 6.0 Ur Specific Fitzhugh 1.015 Urine Protein Negative Urine Glucose (UA) Negative Urine Ketones Negative Urine Blood Negative Urine Nitrite Negative Ur Leukocyte Esterase Negative Coding Level of Care Code Est Pt Level 4 (69377) Diagnoses Depression, unspecified depression type F32.A Depression Type: unspecified Vitamin D deficiency E55.9 Elevated liver enzymes R74.8 Elevated ferritin R79.89 Daytime sleepiness R40.0 Snoring R06.83 Has stopped breathing R09.2 Time Spent (min) 39 Assessment & Plan Assessment & Plan (1) Depression: Code(s): F32.A - Depression, unspecified Category: Medical Qualifiers: Depression Type: unspecified Qualified Code(s): F32.A - Depression, unspecified (2) Vitamin D deficiency: Code(s): E55.9 - Vitamin D deficiency, unspecified Category: Medical (3) Elevated liver enzymes: Code(s): R74.8 - Abnormal levels of other serum enzymes Category: Medical (4) Elevated ferritin: Code(s): R79.89 - Other specified abnormal findings of blood chemistry Category: Medical (5) Daytime sleepiness: Code(s): R40.0 - Somnolence Category: Medical (6) Snoring: Code(s): R06.83 - Snoring Category: Medical (7) Has stopped breathing: Code(s): R09.2 - Respiratory arrest Category: Medical Plan The patient has elevated liver enzymes, which were identified during routine blood work. The plan includes monitoring liver enzyme levels and conducting an ultrasound to assess liver health. Dietary modifications and increased physical activity are recommended to address potential nonalcoholic fatty liver disease. The patient is suspected to have nonalcoholic fatty liver disease due to elevated liver enzymes and obesity. The plan includes dietary changes to reduce cholesterol intake and increase physical activity. An ultrasound of the liver is planned to confirm the diagnosis. The patient sustained a knee injury from a fall, resulting in swelling and suspected synovial fluid leakage. Imaging was performed, and no invasive procedures were necessary as the swelling was reducing. The patient is advised to monitor the knee and seek further evaluation if symptoms persist. Encouraged fish oil supplement. Continue vitamin D3 25 mcg daily. Encouraged the patient to increase his activity and continue to reduce high cholesterol foods. Patient missed appointment for sleep study. He was given a number to call to reach schedule this js. Continue to ongoing depression. The patient was referred on his prior visit but has not follow up to obtain appointment as yet. Encouraged CBT. Orders: Orders Comprehensive [place]. Panel Fast 3 Months E55.9 - Vitamin D deficiency, unspecified, F32.A - Depression, unspecified, R40.0 - Somnolence, R74.8 - Abnormal levels of other serum enzymes, R79.89 - Other specified abnormal findings of blood chemistry UA CC w/rflx Micro + Cult 3 Months E55.9 - Vitamin D deficiency, unspecified, F32.A - Depression, unspecified, R40.0 - Somnolence, R74.8 - Abnormal levels of other serum enzymes, R79.89 - Other specified abnormal findings of blood chemistry Vitamin D 25-OH Total 3 Months E55.9 - Vitamin D deficiency, unspecified, F32.A - Depression, unspecified, R40.0 - Somnolence, R74.8 - Abnormal levels of other serum enzymes, R79.89 - Other specified abnormal findings of blood chemistry Transferrin 3 Months E55.9 - Vitamin D deficiency, unspecified, F32.A - Depression, unspecified, R40.0 - Somnolence, R74.8 - Abnormal levels of other serum enzymes, R79.89 - Other specified abnormal findings of blood chemistry US abdomen david w elastography Today R74.8 - Abnormal levels of other serum enzymes, R79.89 - Other specified abnormal findings of blood chemistry IRON PROFILE 3 Months E55.9 - Vitamin D deficiency, unspecified, F32.A - Depression, unspecified, R40.0 - Somnolence, R74.8 - Abnormal levels of other serum enzymes, R79.89 - Other specified abnormal findings of blood chemistry
--- OUTSIDE RECORDS SUMMARY | 2025-02-22 08:56 | XMS_ITS | Encounter Summary ---
Author Organization [facility] Address [address] [place] [address] Phone Care Team Providers Care Acute Care Nursing Assistant Name Role Phone Du Puckett MINT MACHINE OPERATOR Primary Care Provider Encounter Details Date Type Department Care Team (Late st Contact Info) Description 12/09/2024 Procedure Pass [facility] [address] [place] [address] Social History Tobacco Use Types Packs/Day Years [...] on filedocumented in this encounter Care Teams Acute Care Nursing Assistant Relationship Specialty Start Date End Date Du Puckett NP [address] [place] [address] Dr [address] [place] [address] PCP - General Nurse Practitioner 12/02/24 documented as of this encounter Additional Source Comments The information contained in this document represents components of the legal health record. It is not the complete legal health record.[facility]
--- OUTSIDE RECORDS SUMMARY | 2025-02-22 08:56 | XMS_ITS | Clinical Summary ---
Author Organization [facility] Address [address] [place] [id number] Phone Care Team Providers Care Electric Meter Installer Helper Name Role Phone ItaloDu ROOMS DIRECTOR Primary Care Provider Allergies No known active allergies Medications No known medications Active Problems No known active problems Encounters Date Type Department Care Team Description 01/21/2025 3:30 PM EDT Office Visit [facility] [address] [place] [address] [place] [id number] Karel Zavala MD Knee mass, right (Primary Dx); Prepatellar bursitis of right knee 12/31/2024 8:37 PM EDT - 12/31/2024 11:59 PM EDT Hospital Encounter [address] [address] Karel Zavala MD Discharge Disposition: Home or Self Care 12/09/2024 1:30 PM EDT Office Visit [facility] [address] [place] [address] [place] [id number] Karel Zavala MD Knee mass, right (Primary Dx) 12/09/2024 Procedure Pass [address] [address] 12/01/2024 9:41 PM EDT - 12/02/2024 3:35 AM EDT Emergency [facility] [address] [place] [id number] Ya Byers MD Discharge Disposition: Home or [...] 2002 INFLUENZA VACCINE (#1) 2024 COVID-19 VACCINE (2024-2 6 season) 2025 SCREENING FOR DIABETES 12/11/2025 12/11/2022 [...] clinician's provided indication for this examination in [facility]: * Meniscal tear, untreated, new symptoms; [...] clinician's provided indication for this examination in [facility]: *Meniscal tear, untreated, new symptoms; * [...] softtissue swelling. IMPRESSION: No acute osseous abnormality[facility] LOWER EXTREMITY Fi nal Result from Last 3 Months Insurance [address] [place] [id number] [employer] [address] [place] [id number] GENER[employer] COMM[employer] [place] [address] [place] [id number] GENERIC COMMERCIAL GENERIC COMMERCIAL GENERIC COMMERCIAL GENERIC COMMERCIAL Care Teams Electric Meter Installer Helper Relationship Specialty Start Date End Date Du Puckett NP [address] [place] [address] [address] [place] [address] PCP - General Nurse Practitioner 12/02/24 Additional Source Comments The information contained in this document represents components of the legal health record. It is not the complete legal health record.[facility]
--- OUTSIDE RECORDS SUMMARY | 2025-02-22 08:56 | XMS_ITS | Clinical Summary ---
Author Organization [facility] Address [address] [place] [address] Care Team Providers Care Security Sergeant Name Role Phone Unavailable Primary Care Provider [...]
== END 2025-02-22 09:27 | disposition home or self-care (01) ==
LOC: HO.HMCH 08:33
DX: F32.A Depression, unspecified (principal); E55.9 Vitamin D deficiency, unspecified; R74.8 Abnormal levels of other serum enzymes; R79.89 Other specified abnormal findings of blood chemistry; R40.0 Somnolence; R06.83 Snoring; R09.2 Respiratory arrest

== ENCOUNTER 2025-03-11 09:59 | Outpatient (REF) | payer OTHER, SELFPAY ==
--- NOTE | ~2025-03-11 | US_ITS ---
EXAMINATION: US ABDOMEN LIMITED WITH LIVER ELASTOGRAPHY HISTORY: R74.8 - Abnormal levels of other serum enzymes TECHNIQUE: Real-time grayscale ultrasound imaging of the right upper quadrant was performed and images were reviewed. COMPARISON: There are no prior studies available for comparison. FINDINGS: Liver: The right lobe of the liver measures 17.6 cm in size. The left lobe of the liver measures 11.4 cm in size. The liver demonstrates increased echotexture, consistent with steatosis. There is focal fatty sparing adjacent to the gallbladder. No focal mass or intrahepatic biliary ductal dilatation is identified. There is normal hepatopedal flow in the portal vein. Ultrasound elastography of the liver was performed with 10 separate measurements of the liver parenchyma with the patient in the supine position. Measurements were obtained approximately 2 cm below Murtaza's capsule and perpendicular to the capsule. The median shear wave velocity is 1.67 m/s. The interquartile range/median (IQR/median) is 0.08. Gallbladder and biliary tree: The gallbladder is unremarkable, without evidence of calculi, wall thickening, or pericholecystic fluid. There is no sonographic Turpin sign. The common bile duct is normal in caliber measuring 3 mm. Right Kidney: The right kidney measures 12.8 cm in length. The right kidney is unremarkable, without evidence of masses, hydronephrosis, or calculi. Pancreas: The pancreatic head, neck, and body are unremarkable. The pancreatic tail is obscured by bowel gas. Abdominal aorta and inferior vena cava: The visualized portions of the abdominal aorta and inferior vena cava are normal in caliber. There is no free fluid in the right upper quadrant. US/US abdomen david w elastography IMPRESSION: Hepatomegaly and hepatic steatosis. The median shear wave velocity in the liver is 1.67 m/s, corresponding to a median liver stiffness of 8.59 kPa. The IQR/median value is 0.08. This is indicative of a quality data set. Findings are indicative of a low elastography value which rules out advanced chronic liver disease in asymptomatic patients. REFERENCE: Society of Radiologists in Ultrasound Liver Stiffness Thresholds (2019): LIVER STIFFNESS THRESHOLDS: *Shear wave velocity less than 1.3 m/s (Liver Stiffness equal or less than 5 kPa): High probability of being normal. *Shear wave velocity less than 1.7 m/s (Liver Stiffness less than 9 kPa): In the absence of other known clinical signs, rules out compensated advanced chronic liver disease. *Shear wave velocity between 1.7-2.1 m/s (Liver Stiffness 9-13 kPa): Suggestive of compensated advanced chronic liver disease but need further test for confirmation. *Shear wave velocity between 2.1-2.4 m/s (Liver Stiffness 13-17 kPa): Rules in compensated advanced chronic liver disease. *Shear wave velocity greater than 2.4 m/s (Liver Stiffness over 17 kPa): Suggestive of clinically significant portal hypertension. QUALITY OF DATA SET: *IQR/Median value equal or less than 0.15 implies a quality data set. *IQR/Median value over 0.15 implies a poor quality data set. SIGNIFICANT CHANGE FROM PRIOR EXAM: Significant change if liver stiffness measurement is 10% or greater from prior exam. OTHER CONSIDERATIONS: The stage of liver fibrosis may be overestimated in the setting of acute hepatitis, liver inflammation, elevated liver function tests, hepatic vascular congestion, obstructive cholestasis, non-fasting state, and infiltrative diseases such as amyloidosis and lymphoma. In some patients with NAFLD, the liver stiffness thresholds for compensated advanced chronic liver disease may be lower. In causes other than viral hepatitis and NAFLD, liver stiffness thresholds are not well established. Electronically signed by: Karel Gómez MD 03/11/2025 11:49 AM EDT
--- OUTSIDE RECORDS SUMMARY | 2025-03-11 11:11 | XMS_ITS | Encounter Summary ---
Author Organization [facility] Address [address] [place] [address] Phone Care Team Providers Care Inspector And Tester Name Role Phone Du Puckett SHEETER MACHINE OPERATOR Primary Care Provider Encounter Details Date Type Department Care Team (Late st Contact Info) Description 12/09/2024 Procedure Pass [facility] [address] [place] [address] Social History Tobacco Use Types Packs/Day Years [...] on filedocumented in this encounter Care Teams Inspector And Tester Relationship Specialty Start Date End Date Du Puckett NP [address] [place] [address] Dr [address] [place] [address] PCP - General Nurse Practitioner 12/02/24 documented as of this encounter Additional Source Comments The information contained in this document represents components of the legal health record. It is not the complete legal health record.[facility]
--- OUTSIDE RECORDS SUMMARY | 2025-03-11 11:12 | XMS_ITS | Clinical Summary ---
Author Organization [facility] Address [address] [place] [address] Phone Care Team Providers Care Adobe Block Maker Name Role Phone Enrique Pucketturicradhames Keys FIRE MANAGEMENT OFFICER Primary Care Provider Allergies No known active allergies Medications No known medications Active Problems No known active problems Encounters Date Type Department Care Team Description 01/21/2025 3:30 PM EDT Office Visit [facility] [address] [place] [address] [place] [phone] Karel Zavala MD Knee mass, right (Primary Dx); Prepatellar bursitis of right knee 12/31/2024 8:37 PM EDT - 12/31/2024 11:59 PM EDT Hospital Encounter [address] [address] Karel Zavala MD Discharge Disposition: Home or Self Care 12/09/2024 1:30 PM EDT Office Visit [facility] [address] [place] [address] [place] [id number] Karel Zavala MD Knee mass, right (Primary Dx) 12/09/2024 Procedure Pass [address] [address] from Last 3 Months Social History Tobacco [...] 12/31/2024 10:45 PM EDT Knee mass, right from Last 3 Months Results * MRI [...] provided indication for this examination in Epic: * Meniscal tear, untreated, new symptoms; * [...] provided indication for this examination in Epic: *Meniscal tear, untreated, new symptoms; * Soft [...] surfacing meniscal tear. 3. Trace joint fluid. Krael Zavala MD IMG MR EXTREMITY Final Result from Last 3 Months Insurance GENERIC COMMERCIAL GENERIC COMMERCIAL GENERIC COMMERCIAL GENERIC COMMERCIAL GENERIC COMMERCIAL GENERIC COMMERCIAL Care Teams Adobe Block Maker Relationship Specialty Start Date End Date Du Puckett NP [address] [place] [address] [address] [place] [address] PCP - General Nurse Practitioner 12/02/24 Additional Source Comments The information contained in this document represents components of the legal health record. It is not the complete legal health record.[facility]
== END 2025-03-11 10:00 | disposition home or self-care (01) ==
LOC: HO.US 09:59
DX: R74.8 Abnormal levels of other serum enzymes (principal); R79.89 Other specified abnormal findings of blood chemistry
CPT/HCPCS: 76705; 76981

== ENCOUNTER → 2025-03-11 10:01 | Outpatient (BNV) | payer OTHER, SELFPAY | PROVIDERS: Visit Provider Radiology Diagnostic Radiology | DX: R74.8 Abnormal levels of other serum enzymes (principal) | CPT/HCPCS: 76705 ==